=== PATIENT | female | born 1975 | race African-American/Black ===

== ENCOUNTER 2017-01-04 10:58 | Emergency (ER) | payer OTHER ==
[~2017-01-04] VITALS: Ht 167.6 cm; Wt 147.0 kg
[2017-01-04] MEDS ORDERED: ZANTAC 150MG T150 MG PO (11:33)
[2017-01-04] MEDS ORDERED: FLEXERIL PO (11:33)
[2017-01-04] MEDS ORDERED: SYMBYAX 6-25 M1 EACH PO (11:34)
[2017-01-04] MEDS ORDERED: ALPRAZOLAM 0.0.25 MG PO (11:35)
[2017-01-04] MEDS ORDERED: NAPROSYN500 MG PO (11:35)
[2017-01-04] MEDS ORDERED: HYDROCHLOROTHIA25 M2 PO (11:36)
[2017-01-04] MEDS ORDERED: PREDNISONE 20 M20 MG PO (11:52)
[2017-01-04 12:26] VITALS: BP 104/61
== END 2017-01-04 12:29 | disposition home or self-care (01) ==
LOC: ER 10:58
DX: T50.995A Adverse effect of other drugs, medicaments and biological substances, initial encounter (principal); I10 Essential (primary) hypertension; F10.99 Alcohol use, unspecified with unspecified alcohol-induced disorder; Y92.89 Other specified places as the place of occurrence of the external cause

== ENCOUNTER → 2021-06-24 | Outpatient (CLI) | payer BC, OTHER ==
[~2021-06-24] MED LIST: ALPRAZOLAM 0.0.25 MG PO; FLEXERIL PO; HYDROCHLOROTHIA25 M2 PO; NAPROSYN500 MG PO; PREDNISONE 20 M20 MG PO; SYMBYAX 6-25 M1 EACH PO; ZANTAC 150MG T150 MG PO
== END ==
LOC: SJCVCIMAG 08:11
PROVIDERS: ATTEND Internal Medicine
DX: R07.9 Chest pain, unspecified (principal); E11.9 Type 2 diabetes mellitus without complications; I10 Essential (primary) hypertension